=== PATIENT | female | born 1935 | race Asian ===

== ENCOUNTER 2018-09-09 12:04 | Day surgery (SDC) | payer OTHER ==
[2018-09-09] MEDS ORDERED: LIDOCAINE 100 MG SYRINGE (14:49)
[2018-09-09] MEDS ORDERED: PROPOFOL 20 ML (14:49)
== END 2018-09-09 18:08 | disposition home or self-care (01) ==
LOC: GIL 12:04
DX: Z12.11 Encounter for screening for malignant neoplasm of colon (principal); D12.2 Benign neoplasm of ascending colon; K64.8 Other hemorrhoids
CPT/HCPCS: 45380; 88305